=== PATIENT | male | born 1960 | race Caucasian/White ===

== ENCOUNTER 2018-12-10 18:18 | Emergency (ER) | payer BC ==
[~2018-12-10] VITALS: Ht 185.4 cm; Wt 123.3 kg
[2018-12-10] MEDS ORDERED: LEVO100T5 PO (18:46)
[2018-12-10] MEDS ORDERED: CLAR10CA3 PO (18:46)
[2018-12-10] MEDS ORDERED: IMBR420T PO (18:46)
[2018-12-10] MEDS ORDERED: LISI-538 PO (18:46)
[2018-12-10] MEDS ORDERED: OMEP20CA3 PO (18:46)
[2018-12-10] MEDS ORDERED: MULT1TAB7 PO (18:46)
[2018-12-10] MEDS ORDERED: COQ-100C5 PO (18:46)
[2018-12-10] MEDS ORDERED: KP F1200 PO (18:46)
[2018-12-10 19:53] LABS: HEMATOCRIT 45.6 % (42.0-52.0); HEMOGLOBIN 15.2 g/dl (13.5-17.5); MEAN CORPUSCULAR HEMOGLOBIN 33.2 pg (27.0-33.0); MEAN CORPUSCULAR HGB CONC 33.3 g/dl (32.0-36.5); MEAN CORPUSCULAR VOLUME 99.6 fl (80.0-96.0); PLATELET COUNT, AUTOMATED 131 10^3/uL (150-450); RED BLOOD COUNT 4.58 10^6/uL (4.30-6.10)
[2018-12-10 19:57] LABS: WHITE BLOOD COUNT 16.8 10^3/uL (4.0-10.0)
[2018-12-10 20:14] LABS: BLOOD UREA NITROGEN 16 MG/DL (7-18); CALCIUM LEVEL 8.7 MG/DL (8.5-10.1); CARBON DIOXIDE LEVEL 28 MEQ/L (21-32); CHLORIDE LEVEL 104 MEQ/L (98-107); CREATININE FOR GFR 1.27 MG/DL (0.70-1.30); GLOMERULAR FILTRATION RATE > 60.0 (>56); GLUCOSE, FASTING 101 MG/DL (70-100); POTASSIUM SERUM 4.4 MEQ/L (3.5-5.1); SODIUM LEVEL 139 MEQ/L (136-145)
[2018-12-10] MEDS ORDERED: ISOVUE-370 76% 100ML VIAL (Q9967) As Ordered ONE (20:25)
[2018-12-10] MEDS ORDERED: NS 1,000 ML IV ONE (20:30)
[2018-12-10 20:36] LABS: ATYPICAL LYMPH 5 % (0-5); EOSINOPHILS 2 % (0-5); LYMPHOCYTES 38 % (16-52); MONOCYTES 4 % (0-8); NEUTROPHILS 51 % (35-75); SMUDGE CELLS 1+
[2018-12-10 20:38] LABS: PLATELET ESTIMATE DECREASED (NORMAL)
--- NOTE | 2018-12-10 21:09 | REPVR ---
EXAM: CT Maxillofacial With Contrast EXAM DATE/TIME: 12/10/2018 8:30 PM CLINICAL HISTORY: 58 years old, male; Signs and symptoms; Mass, lump, or swelling; Maxilla; Additional info: Left facial swelling TECHNIQUE: Imaging protocol: Axial computed tomography images of the face with intravenous contrast. Coronal and sagittal reformatted images were created and reviewed. Radiation optimization: All CT scans at this facility use at least one of these dose optimization techniques: automated exposure control; mA and/or kV adjustment per patient size (includes targeted exams where dose is matched to clinical indication); or iterative reconstruction. Contrast material: ISOVUE 370; Contrast volume: 75 ml; Contrast route: IV; COMPARISON: No relevant prior studies available. FINDINGS: Orbits: No acute intraorbital abnormality. Globes are unremarkable. Mastoid air cells: Clear mastoid air cells. Sinuses: Clear paranasal sinuses. Bones/joints: There is no evidence of fracture. There is no evidence of destructive change of bone in this region. Nasopharynx: Normal appearing nasopharynx. Oropharynx: There is some prominence of the tonsillar pillars bilaterally. Larynx: Normal appearing epiglottis. Lymph nodes: No evidence of significant lymphadenopathy right or left side of the neck. Submandibular/Parotid glands: Normal appearing parotid glands. Soft tissues: There is swelling of the left cheek. There is soft tissue swelling along the cortex of the left side of the mandible and very suspicious for a focal area of infection. There may be a very small pocket of infected fluid. IMPRESSION: 3.5 CM in length by 2 CM in greatest thickness area of subcutaneous swelling left side of the mandible. There may be a small pocket of infected fluid. This overall is suspicious for swelling and subcutaneous infection. Electronically signed by: Chris Gonzalez On 12/10/2018 21:09:44 PM
[2018-12-10] MEDS ORDERED: IBUP-1114 PO (21:30)
[2018-12-10] MEDS ORDERED: AUGM875T28 PO (21:30)
[2018-12-10] MEDS ORDERED: AMPICILLIN SOD/SULBACTAM SOD 3 GM in D5W MINI-BAG PLUS 100 ML IV ONE (21:30)
[2018-12-10 22:20] VITALS: BP 136/75
--- NOTE | 2018-12-12 14:08 | ED PDOC ---
Post-Departure Follow-Up dr silva faxed formal report of ct max fac for fu Abhilash Law MD December 12, 2018 14:08
== END 2018-12-10 22:31 | disposition home or self-care (01) ==
LOC: M ED 18:18
DX: L03.211 Cellulitis of face (principal)
CPT/HCPCS: 36415; 70487; 80048; 85025; 96361; 96365; 99284; Q9967